=== PATIENT | female | born 1985 | race African-American/Black ===

== ENCOUNTER 2018-10-30 11:22 | Emergency (ER) | payer SELFPAY ==
[~2018-10-30] VITALS: Ht 152.4 cm; Wt 54.4 kg
[2018-10-30 11:44] VITALS: BP 120/78
--- NOTE | 2018-10-30 11:49 | NUR ---
ED Nurse Note: Patient walked in to ER c/o Ashtma symptoms with coughing and body ache for 3 days. pt aao x4, skin clean and intact. pt coughing currently with thick yellow mucus.
[2018-10-30] MEDS ORDERED: Albuterol ud Inhalation HHN ONE (12:00)
[2018-10-30] MEDS ORDERED: Ipratropium 0.02% Inh Soln 2.5ml UD HHN ONE (12:00)
--- NOTE | 2018-10-30 12:18 | NUR ---
ED Nurse Note: Receiving breathing treatment at bedside.
[2018-10-30] MEDS ORDERED: ALBUTEROL SULF8.5 GM INH (12:39)
[2018-10-30] MEDS ORDERED: MEDROL DOSEPAK4 MG ORAL (12:39)
[2018-10-30] MEDS ORDERED: ZYRTEC10 MG ORAL (12:58)
[2018-10-30 13:06] VITALS: BP 120/78
--- NOTE | 2018-10-30 13:07 | NUR ---
ER DISCHARGE NOTE: Patient is cleared to be discharged per ERMD, pt is aox4, on room air, with stable vital signs. pt was given dc and prescription instructions, pt was able to verbalize understanding, pt id band removed. pt is able to ambulate with steady gait. pt took all belongings.
--- NOTE | 2018-10-30 14:00 | Emergency Room Report ---
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 Denies any other obvious fevers Denies neck pain or photophobia Denies any chest pain Given the patient's worsening breathing and asthma exacerbation she presents to the ER denies any rash or recent travel Allergies: Coded Allergies: No Known Allergies (Unverified , 10/30/18) Patient History Past Medical History: see triage record Pertinent Family History: none Last Menstrual Period: 10/22/18 Now: No - possibly : 1 Para: 0 Reviewed Nursing Documentation: PMH: Agreed; PSxH: Agreed Nursing Documentation-PMH Hx Cardiac Problems: No - shingles Hx Asthma: Yes Review of Systems All Other Systems: negative except mentioned in HPI Physical Exam Vital Signs Date Time Temp Pulse Resp B/P (MAP) Pulse Ox O2 Delivery O2 Flow Rate FiO2 10/30/18 11:35 98.4 95 18 95 Room Air 10/30/18 11:44 120/78 10/30/18 12:12 21 Sp02 EP Interpretation: reviewed, normal General Appearance: well appearing, no apparent distress Head: normocephalic, atraumatic Eyes: bilateral eye PERRL, bilateral eye EOMI ENT: hearing grossly normal, normal pharynx, uvula midline, other - Mild bulging left tympanic membrane Neck: full range of motion, supple, no meningismus, no bony tend Respiratory: no respiratory distress, no retraction, no accessory muscle use, wheezing - Bilaterally Cardiovascular #1: normal peripheral pulses, regular rate, rhythm, no edema, no gallop, no JVD, no murmur Gastrointestinal: normal bowel sounds, non tender, soft, no mass, no organomegaly, non-distended, no guarding, no hernia, no pulsatile mass, no rebound Genitourinary: no CVA tenderness Musculoskeletal: normal inspection Neurologic: oriented x3, responsive, 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, motor strength/ tone normal, sensory intact Psychiatric: mood/affect normal Skin: normal color, no rash, warm/dry, palpation normal Lymphatic: normal inspection, no adenopathy Medical Decision Making Diagnostic Impression: Primary Impression: Asthma attack ER Course Multiple differentials including but not limited to pneumonia, asthma exacerbation, URI or are all considered patient does show some's signs and symptoms of URI Asthma has improved significantly after breathing treatments Patient is stable for close outpatient follow-up Last Vital Signs Date Time Temp Pulse Resp B/P (MAP) Pulse Ox O2 Delivery O2 Flow Rate FiO2 10/30/18 13:06 98.4 94 18 120/78 99 Room Air 21 Status: improved Disposition: HOME, SELF-CARE Condition: Improved Scripts Cetirizine Hcl* (ZYRTEC*) 10 Mg Tablet 10 MG ORAL DAILY, #20 TAB 0 Refills Prov: Giovanni Khan DO 10/30/18 Methylprednisolone (Methylprednisolone*) 4MG Dspk 4 MG ORAL DIRECTED for 6 Days, #21 EA 0 Refills Day 1: Two tablets before breakfast, one after lunch, one after dinner, and two at bedtime. If started late in the day, take all six tablets at once or divide into two or three doses, unless otherwise directed by prescriber. Day 2: One tablet before breakfast, one after lunch, one after dinner, and two at bedtime Day 3: One tablet before breakfast, one after lunch, one after dinner, and one at bedtime Day 4: One tablet before breakfast, one after lunch, and one at bedtime Day 5: One tablet before breakfast and one at bedtime Day 6: One tablet before breakfast Prov: Giovanni Khan DO 10/30/18 Albuterol Sulfate* (ALBUTEROL SULFATE MDI*) 8.5 Gm Hfa.aer.ad 2 PUFF INH Q6H, #1 EA 0 Refills Prov: Giovanni Khan DO 10/30/18 Referrals: NOT CHOSEN IPA/MD,REFERRING (PCP) Patient Instructions: Asthma, Adult Additional Instructions: Patient is provided with the discharge instructions notified to follow up with primary doctor in the next 2-3 days otherwise return to the er with any worsening symptoms. Please note that this report is being documented using [employer] technology. This can lead to erroneous entry secondary to incorrect interpretation by the dictating instrument. Giovanni Khan DO October 30, 2018 13:59
== END 2018-10-30 13:08 | disposition home or self-care (01) ==
LOC: EMR 12:40
DX: J45.901 Unspecified asthma with (acute) exacerbation (principal); R51 Headache
CPT/HCPCS: 94640; 99284; J7512